=== PATIENT | male | born 1955 | race Caucasian/White ===

== ENCOUNTER 2021-04-12 19:05 | Emergency (ER) | payer MEDICARE ==
[2021-04-12] MEDS ORDERED: CEPHALEXIN500 M1 PO (23:03)
== END 2021-04-12 23:25 | disposition home or self-care (01) ==
LOC: ER1 19:05
DX: S61.213A Laceration without foreign body of left middle finger without damage to nail, initial encounter (principal); S61.217A Laceration without foreign body of left little finger without damage to nail, initial encounter; S61.215A Laceration without foreign body of left ring finger without damage to nail, initial encounter; S93.402A Sprain of unspecified ligament of left ankle, initial encounter; W11.XXXA Fall on and from ladder, initial encounter; Z23 Encounter for immunization
CPT/HCPCS: 12001; 73030; 73130; 73610; 90471; 90714; 99283